=== PATIENT | female | born 1945 | race Caucasian/White ===

== ENCOUNTER 2017-01-27 15:00 | Outpatient (CLI) | payer BC, MEDICARE ==
[~2017-01-27] VITALS: Ht 170.2 cm; Wt 71.3 kg
[2017-01-27 15:22] VITALS: BP 123/63; PULSE 58; TEMP 97.3
[2017-01-27] MEDS ORDERED: BETIMOL 0.5% OPH5 ML OU (15:25)
== END 2017-01-27 16:11 | disposition home or self-care (01) ==
LOC: EUO 15:00
DX: M81.0 Age-related osteoporosis without current pathological fracture (principal); Z79.899 Other long term (current) drug therapy
CPT/HCPCS: J3489

== ENCOUNTER → 2017-04-01 | Outpatient (CLI) | payer BC, MEDICARE ==
[~2017-04-01] MED LIST: BETIMOL 0.5% OPH5 ML OU
== END ==
LOC: MC.RAD 12:52
DX: Z12.31 Encounter for screening mammogram for malignant neoplasm of breast (principal)

== ENCOUNTER → 2017-05-13 | Outpatient (CLI) | payer BC | LOC: COL.RAD 10:26 | DX: R22.41 Localized swelling, mass and lump, right lower limb (principal); M25.561 Pain in right knee ==

== ENCOUNTER 2018-01-28 10:28 | Outpatient (CLI) | payer BC ==
[~2018-01-28] VITALS: Ht 170.2 cm; Wt 70.9 kg
[2018-01-28 11:16] VITALS: BP 128/66; PULSE 52; TEMP 97.8
== END 2018-01-28 12:06 | disposition home or self-care (01) ==
LOC: EUO 10:28
DX: M81.0 Age-related osteoporosis without current pathological fracture (principal)
CPT/HCPCS: J3489

== ENCOUNTER → 2018-04-13 | Outpatient (CLI) | payer BC | LOC: MC.RAD 09:00 | DX: Z12.31 Encounter for screening mammogram for malignant neoplasm of breast (principal) ==

== ENCOUNTER → 2018-04-22 | Outpatient (CLI) | payer BC | LOC: COL.RAD 07:22 | DX: R19.00 Intra-abdominal and pelvic swelling, mass and lump, unspecified site (principal) | CPT/HCPCS: A9585 ==

== ENCOUNTER → 2019-03-28 | Outpatient (CLI) | payer BC ==
[~2019-03-28] VITALS: Ht 170.2 cm; Wt 72.1 kg
[~2019-03-28] MED LIST changes: +B COMPLEX #11 TAB PO; +CITRACAL + D CA1 TAB PO; +LUMIGAN 2.5 ML2.5 M1 OP; +MAG-OX 400400 MG/TAB PO; +MULTI VITAMINS1 TAB PO; +PROLIA60 MG/ML SQ; +VITAMIN C500 MG PO; +VITAMIN D 1001000 IU PO; +VITAMINE200 PO
[2019-03-28 13:18] VITALS: BP 163/92; PULSE 647
--- NOTE | 2019-03-28 13:40 | NUR ---
Dr Howard in to talk with pt. Dr Howard stated that there is no fluid to drain. Procedure canceled. Dr Howard answers questions for pt. Pt back to holding area to get dressed and then walks out to car.
== END ==
LOC: COL.RAD 03-25 12:00
DX: M79.651 Pain in right thigh (principal)

== ENCOUNTER → 2019-04-05 | Outpatient (CLI) | payer BC | LOC: MC.RAD 09:14 | DX: Z12.31 Encounter for screening mammogram for malignant neoplasm of breast (principal) ==

== ENCOUNTER → 2020-04-06 | Outpatient (CLI) | payer MEDICARE, BC | LOC: MC.RAD 07:30 | DX: Z12.31 Encounter for screening mammogram for malignant neoplasm of breast (principal); N64.89 Other specified disorders of breast ==

== ENCOUNTER → 2020-04-10 | Outpatient (CLI) | payer MEDICARE, BC | LOC: MC.RAD 12:48 | DX: N64.89 Other specified disorders of breast (principal); R92.0 Mammographic microcalcification found on diagnostic imaging of breast ==

== ENCOUNTER → 2021-04-08 | Outpatient (CLI) | payer MEDICARE, BC | LOC: MC.RAD 08:35 | DX: Z12.31 Encounter for screening mammogram for malignant neoplasm of breast (principal); N60.81 Other benign mammary dysplasias of right breast; R92.0 Mammographic microcalcification found on diagnostic imaging of breast ==

== ENCOUNTER → 2021-09-25 | Outpatient (CLI) | payer MEDICARE, BC ==
[~2021-09-25] VITALS: Ht 170.2 cm; Wt 70.1 kg
[~2021-09-25] MED LIST changes: -B COMPLEX #11 TAB PO; +BALANCE B-1001 TA1 PO; +COSOPT 2%-0.5%10 ML OU; +PEPCID 20MG TAB20 MG PO; +ROCKLATAN 0.022.5 ML OP; +SYNTHROID0.075 MG/T PO; -VITAMIN D 1001000 IU PO; +VITAMIN D31000 IU PO; +ZOFRAN 4MG T4 MG/TAB PO
[2021-09-25 10:15] VITALS: BP 148/98; PULSE 91; TEMP 97.7
[2021-09-25 11:50] VITALS: BP 158/95; PULSE 81
--- NOTE | 2021-09-25 12:45 | NUR ---
Dr Jerome Mccarthy [phone] Nurses Toyin Pink at [phone]
== END ==
LOC: COL.RAD 09:38
DX: J90 Pleural effusion, not elsewhere classified (principal); J98.11 Atelectasis; R92.8 Other abnormal and inconclusive findings on diagnostic imaging of breast; Z98.890 Other specified postprocedural states
CPT/HCPCS: 19804

== ENCOUNTER → 2021-10-01 | Outpatient (CLI) | payer MEDICARE, BC ==
[~2021-10-01] VITALS: Ht 170.2 cm; Wt 69.6 kg
[2021-10-01 08:54] VITALS: BP 132/86; PULSE 81; TEMP 97.4
[2021-10-03 10:04] VITALS: BP 121/76; PULSE 78
== END ==
LOC: COL.RAD 08:15
DX: J91.0 Malignant pleural effusion (principal)

== ENCOUNTER → 2021-10-15 | Outpatient (CLI) | payer MEDICARE, BC ==
[~2021-10-15] VITALS: Ht 170.2 cm; Wt 68.5 kg
[~2021-10-15] MED LIST changes: +STOOL SOFTENER100 M2 PO; +ZYRTEC 10MG10 MG PO
[2021-10-15 12:17] VITALS: BP 118/77; PULSE 76; TEMP 97.9
[2021-10-15 13:30] VITALS: BP 103/71; PULSE 71
== END ==
LOC: COL.RAD 11:54
DX: J90 Pleural effusion, not elsewhere classified (principal)

== ENCOUNTER → 2021-10-22 | Outpatient (CLI) | payer MEDICARE, BC ==
[~2021-10-22] VITALS: Ht 170.2 cm; Wt 66.7 kg
[~2021-10-22] MED LIST changes: +MAGIC MOUTHWASH1 M1 PO; +PREDNISONE20 MG PO; +VALTREX1 GM PO
--- NOTE | 2021-10-22 11:15 | NUR ---
CALLED [facility] FOR ORDER AND H/P FOR THE PROCEDURE TODAY.
[2021-10-22 14:30] VITALS: BP 108/69; PULSE 80; TEMP 97.5
[2021-10-22 15:00] VITALS: BP 97/65; PULSE 80
== END ==
LOC: COL.RAD 13:08
DX: J90 Pleural effusion, not elsewhere classified (principal)

== ENCOUNTER → 2021-10-25 | Outpatient (CLI) | payer MEDICARE, BC ==
[~2021-10-25] VITALS: Ht 170.2 cm; Wt 65.5 kg
[2021-10-25 10:57] VITALS: BP 92/58; PULSE 85; TEMP 98
[2021-10-25 11:55] VITALS: BP 118/76; PULSE 85
== END ==
LOC: COL.RAD 09:45
DX: J90 Pleural effusion, not elsewhere classified (principal)

== ENCOUNTER → 2021-11-01 | Outpatient (CLI) | payer MEDICARE, BC ==
[~2021-11-01] VITALS: Ht 170.2 cm; Wt 67.9 kg
[2021-11-01 10:13] VITALS: BP 126/99; PULSE 76; TEMP 97.8
[2021-11-01 11:30] VITALS: BP 128/77; PULSE 71
== END ==
LOC: COL.RAD 09:45
DX: J90 Pleural effusion, not elsewhere classified (principal); R60.0 Localized edema

== ENCOUNTER → 2021-11-08 | Outpatient (CLI) | payer MEDICARE, BC ==
[~2021-11-08] VITALS: Ht 170.2 cm; Wt 65.4 kg
[2021-11-08 12:19] VITALS: BP 146/86; PULSE 75; TEMP 97.9
[2021-11-08 13:30] VITALS: BP 125/80; PULSE 71
== END ==
LOC: COL.RAD 11:57
DX: J90 Pleural effusion, not elsewhere classified (principal); Z98.890 Other specified postprocedural states
CPT/HCPCS: 19804

== ENCOUNTER → 2021-11-15 | Outpatient (CLI) | payer MEDICARE, BC ==
[~2021-11-15] VITALS: Ht 170.2 cm; Wt 67.0 kg
[2021-11-15 12:02] VITALS: BP 154/84; PULSE 67; TEMP 97.8
[2021-11-15 13:10] VITALS: BP 124/83; PULSE 67
== END ==
LOC: COL.RAD 11:35
DX: Z98.890 Other specified postprocedural states (principal)
CPT/HCPCS: 19804

== ENCOUNTER → 2021-11-22 | Outpatient (CLI) | payer MEDICARE, BC ==
[~2021-11-22] VITALS: Ht 170.2 cm; Wt 63.5 kg
[~2021-11-22] MED LIST changes: +MIRALAX PA17 GM/Dose PO; +PRILOSEC 20MG20 MG PO; +ROXANOL 20MG20 MG/ML PO
[2021-11-22 12:10] VITALS: BP 113/69; PULSE 61; TEMP 97.5
[2021-11-22 14:00] VITALS: BP 101/69; PULSE 58
== END ==
LOC: COL.RAD 11:47
DX: J90 Pleural effusion, not elsewhere classified (principal)
CPT/HCPCS: 19804

== ENCOUNTER → 2021-12-06 | Outpatient (CLI) | payer MEDICARE, BC ==
[~2021-12-06] VITALS: Ht 170.2 cm; Wt 59.5 kg
[~2021-12-06] MED LIST changes: +IMODIUM 2MG CAPS2 MG PO; +VALTREX 50500 MG/TAB PO
[2021-12-06 12:32] VITALS: BP 113/75; PULSE 85; TEMP 97.9
[2021-12-06 13:36] VITALS: BP 95/64; PULSE 88
== END ==
LOC: COL.RAD 11:53
DX: J90 Pleural effusion, not elsewhere classified (principal); J98.11 Atelectasis
CPT/HCPCS: 19804

== ENCOUNTER 2021-12-09 14:46 | Outpatient (CLI) | payer MEDICARE, BC ==
[2021-12-09] VITALS (8 sets, daily range): BP systolic 94–103; BP diastolic 47–69; PULSE 74–87; TEMP 97.6
--- NOTE | 2021-12-09 17:55 | NUR ---
Pt tolerated IVF infusion well; vital signs remained stable throughout and pt slept on and off; PIV discontinued prior to discharge; assisted pt to wheelchair to POV with help from ; no questions or concerns prior to discharge and both verbalized comfort in going home; discharge time of 1750.
== END 2021-12-09 17:50 | disposition home or self-care (01) ==
LOC: EUO 14:46
DX: Z45.2 Encounter for adjustment and management of vascular access device (principal)
CPT/HCPCS: J7030